=== PATIENT | female | born 1975 | race Asian ===

== ENCOUNTER 2018-08-25 13:04 | Outpatient (CLI) | payer BC ==
--- NOTE | 2018-08-25 14:58 | ULT ---
LIMITED RIGHT BREAST ULTRASOUND: Date: 08-25-18 Provided Clinical History: Right breast palpable abnormality. FINDINGS: Limited sonographic interrogation was performed of the right breast in the region of palpable concern . The sonographic appearance of the breast tissue in this region is normal. IMPRESSION: BIRADS category 1 - negative. Negative imaging findings should not preclude further evaluation of a c linically suspicious area. The patient was referred back to her physician. POS: OFF
== END 2018-08-25 13:05 | disposition home or self-care (01) ==
LOC: BICMAMMO 13:04
PROVIDERS: ATTEND Obstetrics & Gynecology
DX: R92.8 Other abnormal and inconclusive findings on diagnostic imaging of breast (principal)
CPT/HCPCS: G0279

== ENCOUNTER 2019-06-11 10:57 | Outpatient (CLI) | payer BC ==
--- NOTE | 2019-06-11 11:33 | MMO ---
Bilateral MAMMO Bilat Screen [facility]. CLINICAL HISTORY: Patient is 44 years old and is seen for screening. The patient has no family history of breast cancer. The patient has no personal history of cancer. VIEWS: The views performed were: bilateral craniocaudal with tomosynthesis and bilateral mediolateral oblique with tomosynthesis. FILMS COMPARED: The present examination has been compared to prior imaging studies performed at [facility] on 05/10/2016, 06/06/2017, 06/09/2018 and 08/25/2018. MAMMOGRAM FINDINGS: The breasts are heterogeneously dense, which could obscure a lesion on mammography. There are no suspicious masses, suspicious calcifications, or new areas of architectural distortion. IMPRESSION: THERE IS NO MAMMOGRAPHIC EVIDENCE OF MALIGNANCY. A ROUTINE FOLLOW-UP MAMMOGRAM IN 1 YEAR IS RECOMMENDED. THE RESULTS OF THIS EXAM WERE SENT TO THE PATIENT. ACR BI-RADS Category 1 - Negative MAMMOGRAPHY NOTE: 1. A negative mammogram report should not delay a biopsy if a dominant of clinically suspicious mass is present. 2. Approximately 10% to 15% of breast cancers are not detected by mammography. 3. Adenosis and dense breasts may obscure an underlying neoplasm. Reported by: SHARAN WOODSON MD Electonically Signed: [id number]
== END 2019-06-11 10:58 | disposition home or self-care (01) ==
LOC: BICMAMMO 10:57
PROVIDERS: ATTEND Obstetrics & Gynecology
DX: Z12.31 Encounter for screening mammogram for malignant neoplasm of breast (principal)
CPT/HCPCS: 77063; 77067

== ENCOUNTER 2021-04-25 09:59 | Outpatient (CLI) | payer BC | END 2021-04-25 10:00 | disposition home or self-care (01) | LOC: BICMAMMO 09:59 | PROVIDERS: ATTEND Obstetrics & Gynecology | DX: Z12.31 Encounter for screening mammogram for malignant neoplasm of breast (principal) | CPT/HCPCS: 77063; 77067 ==